=== PATIENT | female | born 1995 | race Caucasian/White ===

== ENCOUNTER 2019-08-08 05:10 | Emergency (ER) | payer SELFPAY ==
[~2019-08-08] VITALS: Ht 172.7 cm; Wt 80.3 kg
[2019-08-08 05:10] VITALS: BP 135/71
[2019-08-08 05:17] VITALS: BP 135/71
--- NOTE | 2019-08-08 05:17 | NUR ---
PATIENT BIB [place] [employer]. PATIENT EXAMINED BY DR. GOMEZ. PATIENT MEDICALLY CLEARED AND RELEASED IN CUSTODY IN STABLE CONDITION. ORIGINAL PRE-BOOK FORM GIVEN TO OFFICER ADAMA.
--- NOTE | 2019-08-08 05:18 | NUR ---
Patient discharged with v/s stable. Written and verbal after care instructions given and explained. Patient verbalized understanding. Police with in custody. All questions addressed prior to discharge. Advised to follow up with PMD.
== END 2019-08-08 05:17 ==
LOC: MED 05:10
DX: S01.511A Laceration without foreign body of lip, initial encounter (principal); Z02.89 Encounter for other administrative examinations; V49.81XA Car occupant (driver) (passenger) injured in transport accident with military vehicle, initial encounter; Y93.89 Activity, other specified; Y92.89 Other specified places as the place of occurrence of the external cause; Y99.8 Other external cause status
CPT/HCPCS: 99283